=== PATIENT | female | born 1945 ===

== ENCOUNTER 2024-04-25 06:25 | Day surgery (SDC) | payer MEDICARE, OTHER, SELFPAY ==
[2024-04-25] VITALS (8 sets, daily range): BP systolic 125–149; BP diastolic 53–99; BMI 20.4
[2024-04-25] MEDS: NORMOSOL-R 1000 IV (08:12)
[2024-04-25] MEDS: TYLENOL 1000 MG PO (08:12)
--- NOTE | 2024-04-25 08:36 | W.SUR.PREOP ---
Pre-Operative Surgical Note
-
I have examined this patient prior to the performance of the scheduled procedure.
The patient's condition is unchanged from the time of the current History and
Physical and the patient is able to undergo the scheduled procedure.
--- NOTE | 2024-04-25 10:25 | W.IMMPOSTOP ---
Surgical Immed Post Op Note
-
Primary Surgeon: Stevenson Augustin MD
Assisting Surgeon: None
Pre-op Diagnosis: Right inguinal hernia
Post-op Diagnosis: Same
Procedure Performed: Open right inguinal hernia repair with mesh
Anesthesia Type: MAC
Specimen / Cultures:
1. Right inguinal nerves
Estimated Blood Loss: 1 cc
Complications: None
Operative Findings: Small indirect inguinal hernia containing fat. No direct component, no femoral hernia palpated. Deep ring closed with a 0 PDS suture and floor reinforced with a 10 x 15 cm Bard soft mesh cut to size. The iliohypogastric and
ilioinguinal nerves were identified and ligated at the level of the internal oblique.
--- NOTE | 2024-04-25 10:27 | OR.RPT ---
Operative Report
Operative Report
Patient Name: Saniya Lopez
: 1945
Date of Operation: 04/25/2024
Preoperative Diagnosis: Reducible Inguinal hernia, right
Postoperative Diagnosis: Same
Procedure(s):
Open Inguinal Hernia Repair
Surgeon(s):
Dr. Augustin
Fish Machine Feeder(s):
None
Anesthesia: MAC
Estimated Blood Loss: 1 cc
Urine Output: None
Drains/Lines/Implants: 3 x 6 inch Bard soft mesh cut to size
Specimens: None
Indication for surgery: The patient has a history of groin pain and some asymmetry noted on exam and was found to have a right left inguinal Hernia, confirmed on imaging. Following review of therapeutic options they has elected to undergo an open
repair
Operative Findings: Small indirect inguinal hernia containing fat. No direct component, no femoral hernia palpated. Deep ring closed with a 0 PDS suture and floor reinforced with a 10 x 15 cm Bard soft mesh cut to size. The iliohypogastric and
ilioinguinal nerves were identified and ligated at the level of the internal oblique.
Details of the operation:
After induction of anesthesia, the patient was clipped, prepped and draped in the supine position. A team timeout was performed confirming administration of IV antibiotics and SCDs. The ASIS and pubic tubercle were marked and an incision was chosen
along the course of a skin line. The skin was anesthetized with Lidocaine. An incision was made through the skin line and dissection carried down through subcutaneous tissue and Wale's fascia. The superficial epigastric vein was not identified.
An XS Dwaine wound retractor was used to provide exposure. The external oblique fibers were then divided in the direction of travel. The ilioinguinal as well as the iliohypogastric nerves were identified and removed. Dissection was carried down to
the floor, which revealed the following:
At the site of the indirect (internal) ring, there was a moderate size protrusion of preperitoneal fat, the hernia sac was identified, dissected and reduced. The round ligament was ligated with a 2-0 Vicryl. A cord lipoma was also identified and
reduced.
The direct space, floor of the canal revealed no weakness. Through the direct ring palpated the femoral space which was free of any hernia.
The floor of the canal was then reconstructed by first closing the deep ring with a running 0 PDS suture and then reinforced with a 6x3 in BARD soft uncoated polypropylene mesh trimmed to size and secured it in place with interrupted 0-PDS sutures
medially at the pubic tubercle, inferiorly along the inguinal ligament, laterally/superiorly in the conjoint tendon. Care was taken not to injure or entrap any nerves. The external oblique fibers were then closed using a running 2-0 Vicryl suture.
Wale's fascia was then closed with 3-0 Vicryl suture. The skin was closed in layers with interrupted 3-0 vicryl deep dermals followed by a running subcuticular 4-0 Monocryl followed by dermabond. The patient returned to the Recovery Room in
stable condition. Sponge and instrument counts were correct. No specimens sent to Pathology.
I was the attending physician and performed the procedure with no assistance. I was present for all portions of the case
Stevenson Augustin MD
[2024-04-25] MEDS: MORPHINE SULFATE 1 MG IV ×2 (10:30→10:44)
== END 2024-04-25 12:18 | disposition home or self-care (01) ==
LOC: SDS 06:25
PROVIDERS: ATTENDING PHYSICIAN Surgery
DX: K40.90 Unilateral inguinal hernia, without obstruction or gangrene, not specified as recurrent (principal)
CPT/HCPCS: 49505; 88305